=== PATIENT | female | born 1995 | race Caucasian/White ===

== ENCOUNTER 2020-11-12 15:18 | Emergency (ER) | payer OTHER ==
[2020-11-12 15:23] VITALS: TEMP 98
[2020-11-12] MEDS ORDERED: SODIUM CHLORIDE 0.9% 1,000 ML IV STA (15:40)
[2020-11-12] MEDS ORDERED: ONDANSETRON 4 MG/2 ML VIAL IVP STA (15:40)
[2020-11-12] MEDS ORDERED: KETOROLAC 15 MG/ML 1 ML VIAL IVP STA (15:40)
[2020-11-12] MEDS ORDERED: PANTOPRAZOLE 40 MG/10 ML VIAL IVP STA (15:40)
[2020-11-12 16:11] LABS: Basophils # (A) 0.1 k/uL (0-0.2); Basophils % (A) 1 %; Eosinophils % (A) 1 %; HCT 39.1 % (34.0-46.0); HGB 12.8 gm/dL (11.4-16.0); Lymphocytes # (A) 2.4 k/uL (1.0-4.8); Lymphocytes % (A) 28 %; MCH 24.8 pg (25.0-35.0); MCHC 32.7 g/dL (31.0-37.0); MCV 75.9 fL (80.0-100.0); Mean Platelet Volume 8.4; Monocytes # (A) 0.5 k/uL (0-1.0); Monocytes % (A) 6 %; Neutrophils # (A) 5.4 k/uL (1.3-7.7); Neutrophils % (A) 63 %; Platelet Count 245 k/uL (150-450); RBC 5.15 m/uL (3.80-5.40); RDW 13.8 % (11.5-15.5); WBC 8.6 k/uL (3.8-10.6)
[2020-11-12 16:21] VITALS: RESP 20
[2020-11-12 16:21] LABS: ALT 17 U/L (4-34); AST 21 U/L (14-36); African American GFR (CKD) >90 (>60 ml/min/1.73 sqM); Albumin 4.7 g/dL (3.5-5.0); Alkaline Phosphatase 65 U/L (38-126); Anion Gap 9 mmol/L; Blood Urea Nitrogen 7 mg/dL (7-17); Calcium 9.4 mg/dL (8.4-10.2); Carbon Dioxide 26 mmol/L (22-30); Chloride 101 mmol/L (98-107); Glucose 82 mg/dL (74-99); Lipase 35 U/L (23-300); Non-African American GFR(CKD) >90 (>60 ml/min/1.73 sqM); Potassium 3.9 mmol/L (3.5-5.1); Sodium 136 mmol/L (137-145); Total Bilirubin 0.4 mg/dL (0.2-1.3); Total Protein 7.5 g/dL (6.3-8.2)
[2020-11-12 16:27] LABS: Appearance,Urine Cloudy (Clear); Bilirubin,Urine Negative (Negative); Blood,Urine Negative (Negative); Color,Urine Yellow; Glucose,Urine (UA) Negative (Negative); Ketones,Urine Negative (Negative); Leukocyte Esterase,Urine Moderate (Negative); Mucus,Urine Few /hpf; Nitrite,Urine Negative (Negative); PH, Urine 5.5 (5.0-8.0); Protein,Urine Negative (Negative); RBC,Urine 2 /hpf (0-5); Squamous Epithelial Cell,Urine 26 /hpf (0-4); Urobilinogen,Urine <2.0 mg/dL (<2.0); WBC,Urine 12 /hpf (0-5)
--- NOTE | 2020-11-12 17:49 | US ---
EXAMINATION TYPE: US gallbladder DATE OF EXAM: 11/12/2020 COMPARISON: NONE CLINICAL HISTORY: + murpgy. Pain EXAM MEASUREMENTS: Liver Length: 16.1 cm Gallbladder Wall: .1 cm CBD: .3 cm Right Kidney: 9.6 x 3.5 x 4.5 cm Pancreas: wnl Liver: wnl Gallbladder: wnl Evidence for sonographic Street's sign: No CBD: wnl Right Kidney: wnl IMPRESSION: Negative exam. No gallstones or dilated ducts.
[2020-11-12 18:08] VITALS: BP 107/67; PULSE 86
--- NOTE | 2020-11-12 18:20 | ED ---
Abdominal Pain HPI - General Chief Complaint: Abdominal Pain Stated Complaint: abd pain Time Seen by Provider: 11/12/20 15:25 Source: patient Mode of arrival: ambulatory Limitations: no limitations - History of Present Illness Initial Comments: 25-year-old female presents to the emergency department with a chief complaint of abdominal pain. She has history of "gallbladder issues". States this pain has been ongoing for the past several days and is located in right upper quadrant region. States the pain is postprandial, usually associated with fatty foods. States the most recent time she had an acute exacerbation of the pain was several years ago. She reports one episode of nausea vomiting but denies any diarrhea. Denies any fevers or chills. Denies any vaginal urinary symptoms. - Related Data Home Medications Medication Instructions Recorded Confirmed Albuterol Sulfate [Ventolin HFA] 1 - 2 puff INHALATION RT-QID PRN 11/12/20 11/12/20 Allergies Allergy/AdvReac Type Severity Reaction Status Date / Time No Known Allergies Allergy Verified 11/12/20 17:00 Review of Systems ROS Statement: Those systems with pertinent positive or pertinent negative responses have been documented in the HPI. ROS Other: All systems not noted in ROS Statement are negative. Past Medical History Past Medical History: No Reported History History of Any Multi-Drug Resistant Organisms: None Reported Past Surgical History: No Surgical Hx Reported Past Psychological History: Anxiety, Depression Smoking Status: Vaper Past Alcohol Use History: None Reported Past Drug Use History: Marijuana General Exam Limitations: no limitations General appearance: alert, in no apparent distress Head exam: Present: atraumatic, normocephalic, normal inspection Eye exam: Present: normal appearance, PERRL, EOMI Pupils: Present: normal accommodation ENT exam: Present: normal exam, normal oropharynx, mucous membranes moist Neck exam: Present: normal inspection, full ROM. Absent: tenderness Respiratory exam: Present: normal lung sounds bilaterally. Absent: respiratory distress, wheezes, rales, rhonchi, stridor, chest wall tenderness, accessory muscle use Cardiovascular Exam: Present: regular rate, normal rhythm, normal heart sounds. Absent: systolic murmur GI/Abdominal exam: Present: soft, tenderness (Right upper quadrant tenderness). Absent: guarding, rebound, rigid Extremities exam: Present: normal inspection, full ROM, normal capillary refill. Absent: tenderness, pedal edema, joint swelling Back exam: Present: normal inspection, full ROM. Absent: tenderness, CVA tenderness (R), CVA tenderness (L) Neurological exam: Present: alert, oriented X3 Psychiatric exam: Present: normal affect, normal mood Skin exam: Present: warm, dry, intact, normal color Course Vital Signs 11/12/20 11/12/20 15:20 16:16 Temperature 98.0 F Pulse Rate 91 56 L Respiratory 16 20 Rate Blood Pressure 126/87 120/87 O2 Sat by Pulse 98 100 Oximetry Medical Decision Making - Medical Decision Making 25-year-old female presents to emergency Department with the chief complaint of abdominal pain. On physical examination, right upper quadrant abdominal tenderness. CBC CMP is unremarkable. UA shows mild elevation leukocyte esterase and white blood cells. She does not have any urinary symptoms so no treatment. Right upper quadrant ultrasound reveals no acute findings. She is experiencing biliary colic. Mother to follow up with a general surgeon. Advised her to stop eating fatty foods. Case discussed with physician. - Lab Data Result diagrams: 11/12/20 16:02 11/12/20 16:02 Lab Results 11/12/20 11/12/20 11/12/20 Range/Units 16:02 16:02 16:02 WBC 8.6 (3.8-10.6) k/uL RBC 5.15 (3.80-5.40) m/uL Hgb 12.8 (11.4-16.0) gm/dL Hct 39.1 (34.0-46.0) % MCV 75.9 L (80.0-100.0) fL MCH 24.8 L (25.0-35.0) pg MCHC 32.7 (31.0-37.0) g/dL RDW 13.8 (11.5-15.5) % Plt Count 245 (150-450) k/uL MPV 8.4 Neutrophils % 63 % Lymphocytes % 28 % Monocytes % 6 % Eosinophils % 1 % Basophils % 1 % Neutrophils # 5.4 (1.3-7.7) k/uL Lymphocytes # 2.4 (1.0-4.8) k/uL Monocytes # 0.5 (0-1.0) k/uL Eosinophils # 0.0 (0-0.7) k/uL Basophils # 0.1 (0-0.2) k/uL Sodium (137-145) mmol/L Potassium (3.5-5.1) mmol/L Chloride (98-107) mmol/L Carbon Dioxide (22-30) mmol/L Anion Gap mmol/L BUN (7-17) mg/dL Creatinine (0.52-1.04) mg/dL Est GFR (CKD-EPI)AfAm (>60 ml/min/1.73 sqM) Est GFR (CKD-EPI)NonAf (>60 ml/min/1.73 sqM) Glucose (74-99) mg/dL Calcium (8.4-10.2) mg/dL Total Bilirubin (0.2-1.3) mg/dL AST (14-36) U/L ALT (4-34) U/L Alkaline Phosphatase (38-126) U/L Total Protein (6.3-8.2) g/dL Albumin (3.5-5.0) g/dL Lipase (23-300) U/L Urine Color Yellow Urine Appearance Cloudy H (Clear) Urine pH 5.5 (5.0-8.0) Ur Specific [place] 1.020 (1.001-1.035) Urine Protein Negative (Negative) Urine Glucose (UA) Negative (Negative) Urine Ketones Negative (Negative) Urine Blood Negative (Negative) Urine Nitrite Negative (Negative) Urine Bilirubin Negative (Negative) Urine Urobilinogen <2.0 (<2.0) mg/dL Ur Leukocyte Esterase Moderate H (Negative) Urine RBC 2 (0-5) /hpf Urine WBC 12 H (0-5) /hpf Ur Squamous Epith Cells 26 H (0-4) /hpf Urine Mucus Few H (None) /hpf Urine HCG, Qual Not Detected (Not Detectd) 11/12/20 Range/Units 16:02 WBC (3.8-10.6) k/uL RBC (3.80-5.40) m/uL Hgb (11.4-16.0) gm/dL Hct (34.0-46.0) % MCV (80.0-100.0) fL MCH (25.0-35.0) pg MCHC (31.0-37.0) g/dL RDW (11.5-15.5) % Plt Count (150-450) k/uL MPV Neutrophils % % Lymphocytes % % Monocytes % % Eosinophils % % Basophils % % Neutrophils # (1.3-7.7) k/uL Lymphocytes # (1.0-4.8) k/uL Monocytes # (0-1.0) k/uL Eosinophils # (0-0.7) k/uL Basophils # (0-0.2) k/uL Sodium 136 L (137-145) mmol/L Potassium 3.9 (3.5-5.1) mmol/L Chloride 101 (98-107) mmol/L Carbon Dioxide 26 (22-30) mmol/L Anion Gap 9 mmol/L BUN 7 (7-17) mg/dL Creatinine 0.67 (0.52-1.04) mg/dL Est GFR (CKD-EPI)AfAm >90 (>60 ml/min/1.73 sqM) Est GFR (CKD-EPI)NonAf >90 (>60 ml/min/1.73 sqM) Glucose 82 (74-99) mg/dL Calcium 9.4 (8.4-10.2) mg/dL Total Bilirubin 0.4 (0.2-1.3) mg/dL AST 21 (14-36) U/L ALT 17 (4-34) U/L Alkaline Phosphatase 65 (38-126) U/L Total Protein 7.5 (6.3-8.2) g/dL Albumin 4.7 (3.5-5.0) g/dL Lipase 35 (23-300) U/L Urine Color Urine Appearance (Clear) Urine pH (5.0-8.0) Ur Specific [place] (1.001-1.035) Urine Protein (Negative) Urine Glucose (UA) (Negative) Urine Ketones (Negative) Urine Blood (Negative) Urine Nitrite (Negative) Urine Bilirubin (Negative) Urine Urobilinogen (<2.0) mg/dL Ur Leukocyte Esterase (Negative) Urine RBC (0-5) /hpf Urine WBC (0-5) /hpf Ur Squamous Epith Cells (0-4) /hpf Urine Mucus (None) /hpf Urine HCG, Qual (Not Detectd) Disposition Clinical Impression: Biliary colic Disposition: HOME SELF-CARE Condition: Stable Instructions (If sedation given, give patient instructions): Biliary Colic (ED) Additional Instructions: Please return to the Emergency Department if symptoms worsen or any other concerns. Follow with the general surgeon. Is patient prescribed a controlled substance at d/c from ED?: No Referrals: None,Stated [Primary Care Provider] - 1-2 days Sherly Liang MD [STAFF PHYSICIAN] - 1-2 days Time of Disposition: 18:25
== END 2020-11-12 18:45 | disposition home or self-care (01) ==
LOC: EC 15:18
DX: K80.50 Calculus of bile duct without cholangitis or cholecystitis without obstruction (principal); F41.9 Anxiety disorder, unspecified; F32.9 Major depressive disorder, single episode, unspecified; F17.290 Nicotine dependence, other tobacco product, uncomplicated; F12.90 Cannabis use, unspecified, uncomplicated
CPT/HCPCS: 99284; 96374; 96375 ×2; 96361; 36415; 80053; 83690; 85025; 81001; 81025; 87086; 76705; J2405; J1885; C9113

== ENCOUNTER 2020-11-27 13:12 | Emergency (ER) | payer OTHER ==
[2020-11-27 13:23] VITALS: BP 103/70; PULSE 91; RESP 18; TEMP 98.4
--- NOTE | 2020-11-27 14:23 | ED ---
ENT HPI - General Chief complaint: ENT Stated complaint: sorethroat Time Seen by Provider: 11/27/20 13:53 Source: patient Mode of arrival: ambulatory Limitations: no limitations - History of Present Illness Initial comments: 25-year-old female presenting to the emergency Department with a chief complaint of sore throat.. Patient reports she is a care for strep pharyngitis and has recurrent infections. Patient reports this feels that the beginning stages of a with a sore throat no cough chills at home. Denies any drooling or changes to her voice. She denies taking medication to alleviate the symptoms. She denies any otalgia but does report some swelling in her anterior lymph nodes. - Related Data Home Medications Medication Instructions Recorded Confirmed Albuterol Sulfate [Ventolin HFA] 1 - 2 puff INHALATION RT-QID PRN 11/12/20 11/12/20 Previous Rx's Medication Instructions Recorded Amoxicillin 875 mg PO Q12HR #20 tablet 11/27/20 Allergies Allergy/AdvReac Type Severity Reaction Status Date / Time No Known Allergies Allergy Verified 11/27/20 13:21 Review of Systems ROS Statement: Those systems with pertinent positive or pertinent negative responses have been documented in the HPI. ROS Other: All systems not noted in ROS Statement are negative. Past Medical History Past Medical History: No Reported History History of Any Multi-Drug Resistant Organisms: None Reported Past Surgical History: No Surgical Hx Reported Past Psychological History: Anxiety, Depression Smoking Status: Vaper Past Alcohol Use History: None Reported Past Drug Use History: Marijuana General Exam Limitations: no limitations General appearance: alert, in no apparent distress Head exam: Present: atraumatic, normocephalic, normal inspection Eye exam: Present: normal appearance, PERRL, EOMI Pupils: Present: normal accommodation ENT exam: Present: normal exam, normal oropharynx (Uvula midline.), mucous membranes moist, TM's normal bilaterally, normal external ear exam Neck exam: Present: normal inspection, full ROM, lymphadenopathy (Anterior cervical lymph nodes). Absent: tenderness, thyromegaly Respiratory exam: Present: normal lung sounds bilaterally. Absent: respiratory distress Cardiovascular Exam: Present: regular rate, normal rhythm, normal heart sounds. Absent: systolic murmur Extremities exam: Present: normal inspection, full ROM Back exam: Present: normal inspection, full ROM Neurological exam: Present: alert, oriented X3 Psychiatric exam: Present: normal affect, normal mood Skin exam: Present: warm, dry, intact, normal color Course Vital Signs 11/27/20 13:21 Temperature 98.4 F Pulse Rate 91 Respiratory 18 Rate Blood Pressure 103/70 O2 Sat by Pulse 97 Oximetry Medical Decision Making - Medical Decision Making 25-year-old female presents to the emergency room with a chief complaint of sore throat. Patient does fit [facility] criteria for treatment for strep pharyngitis. I will not perform a rapid strep testing. Coli test pending. I will prescribe amoxicillin for patient. She is otherwise well-appearing. Return parameters discussed the patient was understanding and agreeable.. PCP follow advised. Disposition Clinical Impression: Pharyngitis Disposition: HOME SELF-CARE Condition: Stable Instructions (If sedation given, give patient instructions): Pharyngitis (ED) Additional Instructions: Please return to the Emergency Department if symptoms worsen or any other concerns. Prescriptions: Amoxicillin 875 mg PO Q12HR #20 tablet Is patient prescribed a controlled substance at d/c from ED?: No Referrals: None,Stated [Primary Care Provider] - 1-2 days Time of Disposition: 14:22
== END 2020-11-27 15:05 | disposition home or self-care (01) ==
LOC: EC 13:12
DX: J02.9 Acute pharyngitis, unspecified (principal); F41.9 Anxiety disorder, unspecified; F32.9 Major depressive disorder, single episode, unspecified; F17.290 Nicotine dependence, other tobacco product, uncomplicated; F12.90 Cannabis use, unspecified, uncomplicated; Z20.822 Contact with and (suspected) exposure to COVID-19
CPT/HCPCS: 87635; 99283

== ENCOUNTER 2023-07-22 10:27 | Emergency (ER) | payer OTHER ==
--- NOTE | 2023-07-22 10:39 | ED ---
Abdominal Pain HPI - General Chief Complaint: Abdominal Pain Stated Complaint: Abd/Back pain Time Seen by Provider: 07/22/23 10:35 Source: patient, RN notes reviewed Mode of arrival: ambulatory Limitations: no limitations - History of Present Illness Initial Comments: 28-year-old female presents emergency department chief complaint of left flank pain. Patient was sent in by urgent care for hematuria concerning for kidney stone. Patient states pain started earlier she has associated nausea denies any chance of she had negative test. Patient states she has never had any like this in the past. Nothing makes pain feel better or worse. - Related Data Home Medications Medication Instructions Recorded Confirmed Albuterol Sulfate [Ventolin HFA] 1 - 2 puff INHALATION RT-QID PRN 11/12/20 05/22/21 Previous Rx's Medication Instructions Recorded Cephalexin [Keflex] 500 mg PO Q6HR 5 Days #20 cap 05/22/21 Ketorolac [Toradol] 10 mg PO Q8HR #15 tab 07/22/23 Ondansetron Odt [Zofran Odt] 4 mg PO Q8HR PRN #10 tab 07/22/23 Allergies Allergy/AdvReac Type Severity Reaction Status Date / Time No Known Allergies Allergy Verified 07/22/23 10:33 Review of Systems ROS Statement: Those systems with pertinent positive or pertinent negative responses have been documented in the HPI. ROS Other: All systems not noted in ROS Statement are negative. Past Medical History Past Medical History: Asthma History of Any Multi-Drug Resistant Organisms: None Reported Past Surgical History: No Surgical Hx Reported Past Psychological History: Anxiety, Depression Smoking Status: Vaper Past Alcohol Use History: None Reported Past Drug Use History: Marijuana General Exam - General Exam Comments Initial Comments: Visual Physical Exam Vital signs reviewed General: Well-appearing, nontoxic, no acute distress. Head: Normocephalic, atraumatic Eyes: PERRLA, EOMI ENT: Airway patent Chest: Nonlabored breathing Skin: No visual rash, normal skin tone Neuro: Alert and oriented 3 Musculoskeletal: No gross abnormalities Limitations: no limitations Course Vital Signs 07/22/23 07/22/23 10:31 13:50 Temperature 97.4 F L 97.9 F Pulse Rate 82 55 L Respiratory 22 16 Rate Blood Pressure 132/85 116/76 O2 Sat by Pulse 100 100 Oximetry Medical Decision Making - Medical Decision Making I completed the quick note portion of this chart signed Gerhard Reeevs PA-C Was pt. sent in by a medical professional or institution (DWAYNE German, [employer], urgent care, hospital, or long-term...) When possible be specific @ -Urgent care Did you speak to anyone other than the patient for history (EMS, parent, family, police, friend...)? What history was obtained from this source @ -No Did you review nursing and triage notes (agree or disagree)? Why? @ -I reviewed and agree with nursing and triage notes Were old charts reviewed (outside hosp., previous admission, EMS record, old EKG, old radiological studies, urgent care reports/EKG's, long-term records)? Report findings @ -No old charts were reviewed Differential Diagnosis (chest pain, altered mental status, abdominal pain women, abdominal pain men, vaginal bleeding, weakness, fever, dyspnea, syncope, headache, dizziness, GI bleed, back pain, seizure, CVA, palpatations, mental health, musculoskeletal)? @ -[Differential Abdominal Pain Women: Appendicitis, Cholecystitis, diverticulosis, ischemic bowel, pancreatitis, hepatitis, UTI, gastroenteritis, AAA, incarcerated hernia, bowel obstruction, constipation, inflammatory bowel, hepatitis, peptic ulcer disease, splenic infarction, perforated viscus, vulvitis, ovarian torsion, PID, kidney stone, placenta abruption, this is not meant to be an all-inclusive list EKG interpreted by me (3pts min.). @ -None X-rays interpreted by me (1pt min.). @ -None done CT interpreted by me (1pt min.). @CT abdomen pelvis showing no acute intra-abdominal process no evidence of kidney stone U/S interpreted by me (1pt. min.). @ -None done What testing was considered but not performed or refused? (CT, X-rays, U/S, labs)? Why? @ -None What meds were considered but not given or refused? Why? @ -None Did you discuss the management of the patient with other professionals (professionals i.e. DWAYNE German, DRAWER MAKER, lab, RT, psych nurse, social welfare research worker, forcer maker, teacher, weapons officer, housing case manager)? Give summary @ -No Was smoking cessation discussed for >3mins.? @ -No Was critical care preformed (if so, how long)? @ -No Were there social determinants of health that impacted care today? How? (Ptarick elessness, low income, unemployed, alcoholism, drug addiction, transportation, low edu. Level, literacy, decrease access to med. care, nursing home, rehab)? @ -No Was there de-escalation of care discussed even if they declined (Discuss DNR or withdrawal of care, Hospice)? DNR status @ -No What co-morbidities impacted this encounter? (DM, HTN, Smoking, COPD, CAD, Cancer, CVA, ARF, Chemo, Hep., AIDS, mental health diagnosis, sleep apnea, morbid obesity)? @ -None Was patient admitted / discharged? Hospital course, mention meds given and route, prescriptions, significant lab abnormalities, going to OR and other pertinent info. @ -Charge patient presented for flank pain, hematuria there is no signs of in fection CT was negative patient may have recently passed a stone patient's pain is improved will be discharged in stable condition. Undiagnosed new problem with uncertain prognosis? @ -No Drug Therapy requiring intensive monitoring for toxicity (Heparin, Nitro, Insulin, Cardizem)? @ -No Were any procedures done? @ -No Diagnosis/symptom? @ -Flank pain, hematuria Acute, or Chronic, or Acute on Chronic? @ -Acute Uncomplicated (without systemic symptoms) or Complicated (systemic symptoms)? @ -Uncomplicated Side effects of treatment? @ -No Exacerbation, Progression, or Severe Exacerbation? @ -No Poses a threat to life or bodily function? How? (Chest pain, [place], [place], pneumonia, PE, COPD, DKA, ARF, appy, cholecystitis, CVA, Diverticulitis, Homicidal, Suicidal, threat to staff... and all critical care pts) @ -No - Lab Data Result diagrams: 07/22/23 12:20 07/22/23 12:20 Lab Results 07/22/23 07/22/23 07/22/23 Range/Units 11:03 12:20 12:20 WBC 6.4 (3.8-10.6) k/uL RBC 5.34 (3.80-5.40) m/uL Hgb 13.0 (11.4-16.0) gm/dL Hct 40.4 (34.0-46.0) % MCV 75.7 L (80.0-100.0) fL MCH 24.3 L (25.0-35.0) pg MCHC 32.1 (31.0-37.0) g/dL RDW 14.3 (11.5-15.5) % Plt Count 253 (150-450) k/uL MPV 8.6 Neutrophils % 55 % Lymphocytes % 36 % Monocytes % 6 % Eosinophils % 1 % Basophils % 1 % Neutrophils # 3.5 (1.3-7.7) k/uL Lymphocytes # 2.3 (1.0-4.8) k/uL Monocytes # 0.4 (0-1.0) k/uL Eosinophils # 0.1 (0-0.7) k/uL Basophils # 0.0 (0-0.2) k/uL Microcytosis Slight Sodium 139 (137-145) mmol/L Potassium 3.9 (3.5-5.1) mmol/L Chloride 105 (98-107) mmol/L Carbon Dioxide 25 (22-30) mmol/L Anion Gap 9 mmol/L BUN 8 (7-17) mg/dL Creatinine 0.76 (0.52-1.04) mg/dL Est GFR (CKD-EPI)AfAm >90 (>60 ml/min/1.73 sqM) Est GFR (CKD-EPI)NonAf >90 (>60 ml/min/1.73 sqM) Glucose 86 (74-99) mg/dL Calcium 9.5 (8.4-10.2) mg/dL Total Bilirubin 0.5 (0.2-1.3) mg/dL AST 23 (14-36) U/L ALT 20 (4-34) U/L Alkaline Phosphatase 66 (38-126) U/L Total Protein 8.1 (6.3-8.2) g/dL Albumin 4.9 (3.5-5.0) g/dL Lipase 44 (23-300) U/L Urine Color Light Yellow Urine Appearance Clear (Clear) Urine pH 6.0 (5.0-8.0) Ur Specific [place] 1.024 (1.001-1.035) Urine Protein Negative (Negative) Urine Glucose (UA) Negative (Negative) Urine Ketones Negative (Negative) Urine Blood Small H (Negative) Urine Nitrite Negative (Negative) Urine Bilirubin Negative (Negative) Urine Urobilinogen <2.0 (<2.0) mg/dL Ur Leukocyte Esterase Negative (Negative) Urine RBC 33 H (0-5) /hpf Urine WBC 4 (0-5) /hpf Ur Squamous Epith Cells 3 (0-4) /hpf Urine Mucus Occasional H (None) /hpf Disposition Clinical Impression: Flank pain, Hematuria Disposition: HOME SELF-CARE Condition: Stable Instructions (If sedation given, give patient instructions): Kidney Stones (ED) Additional Instructions: Please return to the Emergency Department if symptoms worsen or any other concerns. Prescriptions: Ketorolac [Toradol] 10 mg PO Q8HR #15 tab Ondansetron Odt [Zofran Odt] 4 mg PO Q8HR PRN #10 tab PRN Reason: Nausea Is patient prescribed a controlled substance at d/c from ED?: No Referrals: None,Stated [Primary Care Provider] - 1-2 days Time of Disposition: 13:33
[2023-07-22 12:08] LABS: Appearance,Urine Clear (Clear); Bilirubin,Urine Negative (Negative); Blood,Urine Small (Negative); Color,Urine Light Yellow; Glucose,Urine (UA) Negative (Negative); Ketones,Urine Negative (Negative); Leukocyte Esterase,Urine Negative (Negative); Mucus,Urine Occasional /hpf; Nitrite,Urine Negative (Negative); Protein,Urine Negative (Negative); RBC,Urine 33 /hpf (0-5); Specific Gravity,Urine 1.024 (1.001-1.035); Squamous Epithelial Cell,Urine 3 /hpf (0-4); Urobilinogen,Urine <2.0 mg/dL (<2.0); WBC,Urine 4 /hpf (0-5)
[2023-07-22] MEDS: ONDANSETRON 4 MG/2 ML VIAL IVP STA (12:25)
[2023-07-22] MEDS: SODIUM CHLORIDE 0.9% 1,000 ML IV STA (12:26)
[2023-07-22] MEDS: KETOROLAC 15 MG/ML 1 ML VIAL IVP STA (12:26)
[2023-07-22 12:38] LABS: Basophils % (A) 1 %; Eosinophils # (A) 0.1 k/uL (0-0.7); Eosinophils % (A) 1 %; HCT 40.4 % (34.0-46.0); Lymphocytes # (A) 2.3 k/uL (1.0-4.8); Lymphocytes % (A) 36 %; MCH 24.3 pg (25.0-35.0); MCHC 32.1 g/dL (31.0-37.0); MCV 75.7 fL (80.0-100.0); Mean Platelet Volume 8.6; Microcytosis Slight; Monocytes # (A) 0.4 k/uL (0-1.0); Monocytes % (A) 6 %; Neutrophils # (A) 3.5 k/uL (1.3-7.7); Neutrophils % (A) 55 %; Platelet Count 253 k/uL (150-450); RBC 5.34 m/uL (3.80-5.40); RDW 14.3 % (11.5-15.5); WBC 6.4 k/uL (3.8-10.6)
[2023-07-22 12:50] LABS: ALT 20 U/L (4-34); AST 23 U/L (14-36); African American GFR (CKD) >90 (>60 ml/min/1.73 sqM); Albumin 4.9 g/dL (3.5-5.0); Alkaline Phosphatase 66 U/L (38-126); Anion Gap 9 mmol/L; Blood Urea Nitrogen 8 mg/dL (7-17); Calcium 9.5 mg/dL (8.4-10.2); Carbon Dioxide 25 mmol/L (22-30); Chloride 105 mmol/L (98-107); Glucose 86 mg/dL (74-99); Lipase 44 U/L (23-300); Non-African American GFR(CKD) >90 (>60 ml/min/1.73 sqM); Potassium 3.9 mmol/L (3.5-5.1); Sodium 139 mmol/L (137-145); Total Bilirubin 0.5 mg/dL (0.2-1.3); Total Protein 8.1 g/dL (6.3-8.2)
--- NOTE | 2023-07-22 12:53 | CT ---
EXAMINATION TYPE: CT abdomen pelvis wo con DATE OF EXAM: 07/22/2023 COMPARISON: None INDICATION: Left Lower Quadrant pain with Left flank pain DLP: 351.6 mGycm, Automated exposure control for dose reduction was used. CONTRAST: 0 mL of Isovue 300. Study performed without Oral Contrast TECHNIQUE: Axial images were obtained from above the diaphragm to the pubic rami in the axial plane a t 5 mm thick sections. Reconstructed images are reviewed on the computer in the coronal plane. FINDINGS: Limited CT sections are obtained the lung bases. The lung bases are clear. CT ABDOMEN: Liver: Normal Spleen: Normal Pancreas: Normal Adrenal glands: The adrenal glands are normal. Gallbladder: Normal Kidneys: No masses are evident. No hydronephrosis is present. No cysts are present. No renal stone s are evident. Aorta: Normal Inferior vena cava: Normal. CT PELVIS: Loops of bowel within the abdomen and pelvis are normal. The study is without oral contrast limit ing bowel evaluation. No suspicious acute diverticulitis of the sigmoid colon is evident. Appendix: Cecum appears to be near the midline of the pelvis. The appendix is not clearly identified. No suspicious dilated tubular structure or inflammatory changes are evident. Clinical management is recommended for any suspected appendicitis. Urinary bladder: Normal. Genitourinary structures: Uterus is unremarkable. Couple of cysts are present on the ovaries. The lar marianne on the right measures 1.4 cm. Osseous structures: No suspicious lytic or sclerotic lesions. IMPRESSION: 1. No suspicious abnormality account for left lower quadrant pain. 2. Small cyst right ovary
[2023-07-22 13:56] VITALS: BP 116/76; PULSE 55; RESP 16; TEMP 97.9
== END 2023-07-22 13:51 | disposition home or self-care (01) ==
LOC: EC 10:27
DX: N83.201 Unspecified ovarian cyst, right side (principal); F17.290 Nicotine dependence, other tobacco product, uncomplicated
CPT/HCPCS: 36415; 80053; 83690; 85025; 81001; 74176; 99284; 96374; 96375; 96361; J2405; J1885

== ENCOUNTER 2023-07-29 09:26 | Emergency (ER) | payer OTHER ==
--- NOTE | 2023-07-29 10:40 | ED ---
Abdominal Pain HPI - General Chief Complaint: Abdominal Pain Stated Complaint: abd pain Time Seen by Provider: 07/29/23 09:45 Source: patient, RN notes reviewed Mode of arrival: ambulatory Limitations: no limitations - History of Present Illness Initial Comments: This is a 28-year-old female with complaint of right sided abdominal pain that started this morning around 5-6 AM. Patient states that the pain started in her right lower quadrant and has migrated into the right flank with pain into her back as well. She endorses diarrhea and fevers this morning. States that she noticed urine is slightly discolored and may have blood in it. She endorses suprapubic tenderness. Denies previous abdominal surgeries. Denies nausea, vomiting, vaginal bleeding. Patient has a history of ovarian cysts. - Related Data Home Medications Medication Instructions Recorded Confirmed Albuterol Sulfate [Ventolin HFA] 1 - 2 puff INHALATION RT-QID PRN 11/12/20 05/22/21 Previous Rx's Medication Instructions Recorded Cephalexin [Keflex] 500 mg PO Q6HR 5 Days #20 cap 05/22/21 Ketorolac [Toradol] 10 mg PO Q8HR #15 tab 07/22/23 Ondansetron Odt [Zofran Odt] 4 mg PO Q8HR PRN #10 tab 07/22/23 Allergies Allergy/AdvReac Type Severity Reaction Status Date / Time No Known Allergies Allergy Verified 07/22/23 10:33 Review of Systems ROS Statement: Those systems with pertinent positive or pertinent negative responses have been documented in the HPI. ROS Other: All systems not noted in ROS Statement are negative. Past Medical History Past Medical History: Asthma Additional Past Medical History / Comment(s): polycystic ovaries, herpes History of Any Multi-Drug Resistant Organisms: None Reported Past Surgical History: No Surgical Hx Reported Past Psychological History: Anxiety, Depression Smoking Status: Vaper Past Alcohol Use History: None Reported Past Drug Use History: Marijuana General Exam - General Exam Comments Initial Comments: Visual Physical Exam Vital signs reviewed General: Well-appearing, nontoxic, no acute distress. Head: Normocephalic, atraumatic Eyes: PERRLA, EOMI ENT: Airway patent Chest: Nonlabored breathing Skin: No visual rash, normal skin tone Neuro: Alert and oriented 3 Musculoskeletal: No gross abnormalities Limitations: no limitations General appearance: alert, in no apparent distress Head exam: Present: atraumatic, normocephalic, normal inspection Eye exam: Present: normal appearance, PERRL, EOMI. Absent: scleral icterus, conjunctival injection, periorbital swelling ENT exam: Present: normal exam, mucous membranes moist Neck exam: Present: normal inspection. Absent: tenderness, meningismus, lymphadenopathy Respiratory exam: Present: normal lung sounds bilaterally. Absent: respiratory distress, wheezes, rales, rhonchi, stridor Cardiovascular Exam: Present: regular rate, normal rhythm, normal heart sounds. Absent: systolic murmur, diastolic murmur, rubs, gallop, clicks GI/Abdominal exam: Present: soft, tenderness (RLQ radiating into the flank), normal bowel sounds. Absent: distended, guarding, rebound, rigid Extremities exam: Present: normal inspection, full ROM, normal capillary refill. Absent: tenderness, pedal edema, joint swelling, calf tenderness Back exam: Present: normal inspection, full ROM, CVA tenderness (R) Neurological exam: Present: alert, oriented X3, CN II-XII intact Psychiatric exam: Present: normal affect, normal mood Skin exam: Present: warm, dry, intact, normal color. Absent: rash Course Vital Signs 07/29/23 07/29/23 09:56 16:13 Temperature 98.5 F 98 F Pulse Rate 96 78 Respiratory 16 18 Rate Blood Pressure 133/92 121/78 O2 Sat by Pulse 100 100 Oximetry Medical Decision Making - Medical Decision Making Was pt. sent in by a medical professional or institution (, PA, TRENCHER DRIVER, urgent care, hospital, or jail...) When possible be specific @ -No Did you speak to anyone other than the patient for history (EMS, parent, family, police, friend...)? What history was obtained from this source @ -No Did you review nursing and triage notes (agree or disagree)? Why? @ -I reviewed and agree with nursing and triage notes Were old charts reviewed (outside hosp., previous admission, EMS record, old EKG, old radiological studies, urgent care reports/EKG's, jail records)? Report findings @ -No old charts were reviewed Differential Diagnosis (chest pain, altered mental status, abdominal pain women, abdominal pain men, vaginal bleeding, weakness, fever, dyspnea, syncope, headache, dizziness, GI bleed, back pain, seizure, CVA, palpatations, mental health, musculoskeletal)? @ -Differential Abdominal Pain Women: Appendicitis, Cholecystitis, diverticulosis, ischemic bowel, pancreatitis, hepatitis, UTI, gastroenteritis, AAA, incarcerated hernia, bowel obstruction, constipation, inflammatory bowel, hepatitis, peptic ulcer disease, splenic infarction, perforated viscus, vulvitis, ovarian torsion, PID, kidney stone, placenta abruption, this is not meant to be an all-inclusive list EKG interpreted by me (3pts min.). @ -None X-rays interpreted by me (1pt min.). @ -None done CT interpreted by me (1pt min.). @ -None done U/S interpreted by me (1pt. min.). @ -Ultrasound of the renals of bladder reveals no nephrolithiasis or masses, fullness of the renal pelvis bilaterally. Renal ultrasound reveals a irregular hyperechoic rim at the right ovary with correlation of a ruptured cyst. No evidence for torsion with multiple left- sided ovarian follicles noted. What testing was considered but not performed or refused? (CT, X-rays, U/S, labs)? Why? @ -None What meds were considered but not given or refused? Why? @ -None Did you discuss the management of the patient with other professionals (walt hernandez i.e. , PA, TRENCHER DRIVER, lab, RT, psych nurse, social work lecturer, soldering inspector, teacher, training and development officer, family independence case manager)? Give summary @ -No Was smoking cessation discussed for >3mins.? @ -No Was critical care preformed (if so, how long)? @ -No Were there social determinants of health that impacted care today? How? (Homelessness, low income, unemployed, alcoholism, drug addiction, transportation, low edu. Level, literacy, decrease access to med. care, [facility], rehab)? @ -No Was there de-escalation of care discussed even if they declined (Discuss DNR or withdrawal of care, Hospice)? DNR status @ -No What co-morbidities impacted this encounter? (DM, HTN, Smoking, COPD, CAD, Cancer, CVA, ARF, Chemo, Hep., AIDS, mental health diagnosis, sleep apnea, morbid obesity)? @ -None Was patient admitted / discharged? Hospital course, mention meds given and route, prescriptions, significant lab abnormalities, going to OR and other pertinent info. @ -Discharge. 28-year-old female with complaint of right-sided abdominal pain. On examination patient noted to have right-sided pain that is tender to palpation and radiates into the right back. There is no guarding or rigidity noted. CBC and CMP unremarkable. Urinalysis no acute signs of infection, hCG negative. Ultrasound findings consistent with rupture of a right ovarian cyst that is consistent with the clinical presentation. Patient to continue with symptomatic treatment at home cycling Tylenol and Motrin as needed. Recommend follow-up with pastrycook's assistant this week for further evaluation. Discussed with Dr. Madrigal Undiagnosed new problem with uncertain prognosis? @ -No Drug Therapy requiring intensive monitoring for toxicity (Heparin, Nitro, Insulin, Cardizem)? @ -No Were any procedures done? @ -No Diagnosis/symptom? @ -ruptured ovarian cyst Acute, or Chronic, or Acute on Chronic? @ -acute Uncomplicated (without systemic symptoms) or Complicated (systemic symptoms)? @ -uncomplicated Side effects of treatment? @ -No Exacerbation, Progression, or Severe Exacerbation? @ -No Poses a threat to life or bodily function? How? (Chest pain, [place], [place], pneumonia, PE, COPD, DKA, ARF, appy, cholecystitis, CVA, Diverticulitis, Homicidal, Suicidal, threat to staff... and all critical care pts) @ -No - Lab Data Result diagrams: 07/29/23 10:02 07/29/23 10:02 Lab Results 07/29/23 07/29/23 07/29/23 Range/Units 10:02 10:02 10:15 WBC 7.7 (3.8-10.6) k/uL RBC 5.42 H (3.80-5.40) m/uL Hgb 13.7 (11.4-16.0) gm/dL Hct 40.9 (34.0-46.0) % MCV 75.4 L (80.0-100.0) fL MCH 25.3 (25.0-35.0) pg MCHC 33.6 (31.0-37.0) g/dL RDW 14.5 (11.5-15.5) % Plt Count 210 (150-450) k/uL MPV 9.3 Neutrophils % 61 % Lymphocytes % 30 % Monocytes % 6 % Eosinophils % 1 % Basophils % 1 % Neutrophils # 4.7 (1.3-7.7) k/uL Lymphocytes # 2.3 (1.0-4.8) k/uL Monocytes # 0.5 (0-1.0) k/uL Eosinophils # 0.1 (0-0.7) k/uL Basophils # 0.0 (0-0.2) k/uL Microcytosis Slight Sodium 139 (137-145) mmol/L Potassium 4.5 (3.5-5.1) mmol/L Chloride 106 (98-107) mmol/L Carbon Dioxide 26 (22-30) mmol/L Anion Gap 7 mmol/L BUN 9 (7-17) mg/dL Creatinine 0.75 (0.52-1.04) mg/dL Est GFR (CKD-EPI)AfAm >90 (>60 ml/min/1.73 sqM) Est GFR (CKD-EPI)NonAf >90 (>60 ml/min/1.73 sqM) Glucose 92 (74-99) mg/dL Calcium 9.6 (8.4-10.2) mg/dL Total Bilirubin 0.6 (0.2-1.3) mg/dL AST 21 (14-36) U/L ALT 19 (4-34) U/L Alkaline Phosphatase 72 (38-126) U/L Total Protein 7.9 (6.3-8.2) g/dL Albumin 4.7 (3.5-5.0) g/dL Urine Color Colorless Urine Appearance Clear (Clear) Urine pH 7.0 (5.0-8.0) Ur Specific [place] 1.012 (1.001-1.035) Urine Protein Negative (Negative) Urine Glucose (UA) Negative (Negative) Urine Ketones Negative (Negative) Urine Blood Negative (Negative) Urine Nitrite Negative (Negative) Urine Bilirubin Negative (Negative) Urine Urobilinogen <2.0 (<2.0) mg/dL Ur Leukocyte Esterase Negative (Negative) Urine HCG, Qual (Not Detectd) 07/29/23 Range/Units 10:15 WBC (3.8-10.6) k/uL RBC (3.80-5.40) m/uL Hgb (11.4-16.0) gm/dL Hct (34.0-46.0) % MCV (80.0-100.0) fL MCH (25.0-35.0) pg MCHC (31.0-37.0) g/dL RDW (11.5-15.5) % Plt Count (150-450) k/uL MPV Neutrophils % % Lymphocytes % % Monocytes % % Eosinophils % % Basophils % % Neutrophils # (1.3-7.7) k/uL Lymphocytes # (1.0-4.8) k/uL Monocytes # (0-1.0) k/uL Eosinophils # (0-0.7) k/uL Basophils # (0-0.2) k/uL Microcytosis Sodium (137-145) mmol/L Potassium (3.5-5.1) mmol/L Chloride (98-107) mmol/L Carbon Dioxide (22-30) mmol/L Anion Gap mmol/L BUN (7-17) mg/dL Creatinine (0.52-1.04) mg/dL Est GFR (CKD-EPI)AfAm (>60 ml/min/1.73 sqM) Est GFR (CKD-EPI)NonAf (>60 ml/min/1.73 sqM) Glucose (74-99) mg/dL Calcium (8.4-10.2) mg/dL Total Bilirubin (0.2-1.3) mg/dL AST (14-36) U/L ALT (4-34) U/L Alkaline Phosphatase (38-126) U/L Total Protein (6.3-8.2) g/dL Albumin (3.5-5.0) g/dL Urine Color Urine Appearance (Clear) Urine pH (5.0-8.0) Ur Specific [place] (1.001-1.035) Urine Protein (Negative) Urine Glucose (UA) (Negative) Urine Ketones (Negative) Urine Blood (Negative) Urine Nitrite (Negative) Urine Bilirubin (Negative) Urine Urobilinogen (<2.0) mg/dL Ur Leukocyte Esterase (Negative) Urine HCG, Qual Not Detected (Not Detectd) Disposition Clinical Impression: Ruptured ovarian cyst, Abdominal pain Narrative: \Please return to the Emergency Department if symptoms worsen or any other concerns. Recommend patient follows up with pastrycook's assistant this week for further evaluation. Continue to cycle Tylenol Motrin at home for symptomatic relief. Disposition: HOME SELF-CARE Condition: Good Instructions (If sedation given, give patient instructions): Ruptured Ovarian Cyst (ED) Is patient prescribed a controlled substance at d/c from ED?: No Referrals: None,Stated [Primary Care Provider] - 1-2 days Time of Disposition: 15:21
[2023-07-29 10:45] LABS: Appearance,Urine Clear (Clear); Bilirubin,Urine Negative (Negative); Blood,Urine Negative (Negative); Color,Urine Colorless; Glucose,Urine (UA) Negative (Negative); Ketones,Urine Negative (Negative); Leukocyte Esterase,Urine Negative (Negative); Nitrite,Urine Negative (Negative); Protein,Urine Negative (Negative); Specific Gravity,Urine 1.012 (1.001-1.035); Urobilinogen,Urine <2.0 mg/dL (<2.0)
[2023-07-29 10:50] LABS: ALT 19 U/L (4-34); AST 21 U/L (14-36); African American GFR (CKD) >90 (>60 ml/min/1.73 sqM); Albumin 4.7 g/dL (3.5-5.0); Alkaline Phosphatase 72 U/L (38-126); Anion Gap 7 mmol/L; Blood Urea Nitrogen 9 mg/dL (7-17); Calcium 9.6 mg/dL (8.4-10.2); Carbon Dioxide 26 mmol/L (22-30); Chloride 106 mmol/L (98-107); Glucose 92 mg/dL (74-99); Non-African American GFR(CKD) >90 (>60 ml/min/1.73 sqM); Potassium 4.5 mmol/L (3.5-5.1); Sodium 139 mmol/L (137-145); Total Bilirubin 0.6 mg/dL (0.2-1.3); Total Protein 7.9 g/dL (6.3-8.2)
[2023-07-29 11:04] LABS: Basophils % (A) 1 %; Eosinophils # (A) 0.1 k/uL (0-0.7); Eosinophils % (A) 1 %; HCT 40.9 % (34.0-46.0); HGB 13.7 gm/dL (11.4-16.0); Lymphocytes # (A) 2.3 k/uL (1.0-4.8); Lymphocytes % (A) 30 %; MCH 25.3 pg (25.0-35.0); MCHC 33.6 g/dL (31.0-37.0); MCV 75.4 fL (80.0-100.0); Mean Platelet Volume 9.3; Microcytosis Slight; Monocytes # (A) 0.5 k/uL (0-1.0); Monocytes % (A) 6 %; Neutrophils # (A) 4.7 k/uL (1.3-7.7); Neutrophils % (A) 61 %; Platelet Count 210 k/uL (150-450); RBC 5.42 m/uL (3.80-5.40); RDW 14.5 % (11.5-15.5); WBC 7.7 k/uL (3.8-10.6)
--- NOTE | 2023-07-29 11:23 | US ---
EXAMINATION TYPE: US renals and bladder DATE OF EXAM: 07/29/2023 COMPARISON: CT 2023 CLINICAL INDICATION: Female, 28 years old with history of RLQ and flank pain; Pelvic and right flank pain EXAM MEASUREMENTS: Right Kidney: 9.8 x 3.4 x 4.4 cm Left Kidney: 10.0 x 4.3 x 3.9 cm Right Kidney: fullness of renal pelvis Left Kidney: fullness of renal pelvis Bladder: wnl Bilateral Jets seen: no No nephrolithiasis is seen. No masses are identified. The urinary bladder is anechoic. Bilateral u reteral jets are seen. IMPRESSION: Fullness of the renal pelves bilaterally.
--- NOTE | 2023-07-29 11:37 | US ---
EXAMINATION TYPE: US transvaginal DATE OF EXAM: 07/29/2023 COMPARISON: CT 2023 CLINICAL INDICATION: Female, 28 years old with history of RLQ and flank pain; Pelvic and right flank pain TECHNIQUE: Transvaginal ER exam Date of LMP: 3 weeks ago EXAM MEASUREMENTS: Uterus: 7.1 x 3.9 x 4.6 cm Endometrial Stripe: 1.3 cm Right Ovary: 2.4 x 2.0 x 2.8 cm Left Ovary: 3.7 x 1.9 x 1.6 cm 1. Uterus: retroverted 2. Endometrium: wnl 3. Right Ovary: 1.6 x 1.5 x 2.2cm irregular complex area with hyperechoic rim - ? ruptured cyst 4. Left Ovary: multiple follicles Spectral, color and waveform doppler imaging shows good arterial and venous flow within the ovaries ; there is no evidence for ovarian torsion. 5. Bilateral Adnexa: wnl 6. Posterior cul-de-sac: free fluid IMPRESSION: 1. Possible right-sided ovarian ruptured cyst. No evidence for torsion. Multiple left-sided ovarian f ollicle seen.
[2023-07-29] MEDS: ACETAMINOPHEN TAB 500 MG TAB PO STA (15:30)
[2023-07-29] MEDS: KETOROLAC 15 MG/ML 1 ML VIAL IVP STA (15:31)
[2023-07-29 16:27] VITALS: BP 121/78; PULSE 78; RESP 18; TEMP 98
== END 2023-07-29 16:16 | disposition home or self-care (01) ==
LOC: EC 09:26
DX: N83.201 Unspecified ovarian cyst, right side (principal); F17.210 Nicotine dependence, cigarettes, uncomplicated
CPT/HCPCS: 36415; 80053; 85025; 81003; 81025; 93975; 76830; 76770; 99284; 96374; J1885

== ENCOUNTER 2024-09-20 09:52 | Emergency (ER) | payer OTHER ==
[2024-09-20 09:57] VITALS: TEMP 98.5
--- NOTE | 2024-09-20 10:12 | ED ---
Lower Extremity Injury HPI - General Chief Complaint: Extremity Injury, Lower Stated Complaint: Fall, left ankle injury Time Seen by Provider: 09/20/24 10:05 Source: patient, RN notes reviewed Mode of arrival: wheelchair Limitations: no limitations - History of Present Illness Initial Comments: This is a 35-week , 29-year-old female presenting with fianc for her left ankle injury occurring earlier today. Patient states she was [place] a [place] a [place] when she suffered a trip, being caught by her fianc before striking the ground significantly, injuring her left ankle at the time. Patient denies striking head, loss of consciousness, headache, neck pain or lying on her abdomen. Patient denies abdominal pain or vaginal bleeding. Patient denies any significant complication during so far. MD Complaint: ankle injury Onset/Timin -: days(s) Injury: Ankle: Right - Related Data Home Medications Medication Instructions Recorded Confirmed Albuterol Sulfate [Ventolin HFA] 1 - 2 puff INHALATION RT-QID PRN 11/12/20 05/22/21 Previous Rx's Medication Instructions Recorded Cephalexin [Keflex] 500 mg PO Q6HR 5 Days #20 cap 05/22/21 Ketorolac [Toradol] 10 mg PO Q8HR #15 tab 07/22/23 Ondansetron Odt [Zofran Odt] 4 mg PO Q8HR PRN #10 tab 07/22/23 Allergies Allergy/AdvReac Type Severity Reaction Status Date / Time No Known Allergies Allergy Verified 09/20/24 09:57 Review of Systems ROS Statement: Those systems with pertinent positive or pertinent negative responses have been documented in the HPI. ROS Other: All systems not noted in ROS Statement are negative. Past Medical History Past Medical History: Asthma Additional Past Medical History / Comment(s): polycystic ovaries, herpes History of Any Multi-Drug Resistant Organisms: None Reported Past Surgical History: No Surgical Hx Reported Past Psychological History: Anxiety, Depression Smoking Status: Vaper Past Alcohol Use History: None Reported Past Drug Use History: Marijuana General Exam Limitations: no limitations General appearance: alert, in no apparent distress Head exam: Present: atraumatic, normocephalic, normal inspection Eye exam: Present: normal appearance, PERRL, EOMI. Absent: scleral icterus, conjunctival injection, periorbital swelling ENT exam: Present: normal exam, mucous membranes moist Neck exam: Present: normal inspection. Absent: tenderness, meningismus, lymphadenopathy Respiratory exam: Present: normal lung sounds bilaterally. Absent: respiratory distress, wheezes, rales, rhonchi, stridor, accessory muscle use Cardiovascular Exam: Present: regular rate, normal rhythm, normal heart sounds. Absent: systolic murmur, diastolic murmur, rubs, gallop, clicks GI/Abdominal exam: Present: soft, normal bowel sounds. Absent: distended, tenderness, guarding, rebound, rigid Extremities exam: Present: tenderness (Positive left lateral malleolus TTP and moderate edema without ecchymosis, crepitus, deformity), normal capillary refill, other (Decreased left dorsi/plantarflexion strength. Distal neurovascular intact. Dorsalis pedis pulse +2. Negative left knee, superior tib-fib TTP). Absent: pedal edema, joint swelling, calf tenderness Back exam: Present: normal inspection Neurological exam: Present: alert, oriented X3, CN II-XII intact Psychiatric exam: Present: normal affect, normal mood Skin exam: Present: warm, dry, intact, normal color. Absent: rash Course Vital Signs 09/20/24 09/20/24 09:52 12:00 Temperature 98.5 F Pulse Rate 101 H 102 H Respiratory 16 18 Rate Blood Pressure 105/71 102/70 O2 Sat by Pulse 99 96 Oximetry Procedures - Orthopedic Splinting/Casting Injury #1 Side: left Lower Extremity Injury Location: ankle Lower Extremity Immobilizer: posterior splint Other Orthopedic Equipment: crutches Medical Decision Making - Medical Decision Making Was pt. sent in by a medical professional or institution (, PA, RUBBISH COLLECTOR, urgent care, hospital, or alf...) When possible be specific @ -No Did you speak to anyone other than the patient for history (EMS, parent, family, police, friend...)? What history was obtained from this source @ -No Did you review nursing and triage notes (agree or disagree)? Why? @ -I reviewed and agree with nursing and triage notes Were old charts reviewed (outside hosp., previous admission, EMS record, old EKG, old radiological studies, urgent care reports/EKG's, alf records)? Report findings @ -No old charts were reviewed Differential Diagnosis (chest pain, altered mental status, abdominal pain women, abdominal pain men, vaginal bleeding, weakness, fever, dyspnea, syncope, headache, dizziness, GI bleed, back pain, seizure, CVA, palpatations, mental health, musculoskeletal)? @ -Differential Musculoskeletal Muscular strain, contusion, ligament sprain, fracture, arthritis, septic arthritis, bursitis, cellulitis, muscle spasm, nerve compression, DVT, arterial occlusion, herpes zoster, electrolyte abnormality, tumor.... This is not meant to be in all inclusive list EKG interpreted by me (3pts min.). @ -Not done X-rays interpreted by me (1pt min.). @ -Left ankle x-ray shows oblique fracture through distal fibula with intra- articular extension with soft tissue swelling noted. CT interpreted by me (1pt min.). @ -None done U/S interpreted by me (1pt. min.). @ -None done What testing was considered but not performed or refused? (CT, X-rays, U/S, labs)? Why? @ -None What meds were considered but not given or refused? Why? @ -None Did you discuss the management of the patient with other professionals (professionals i.e. , PA, RUBBISH COLLECTOR, lab, RT, psych nurse, social worker delinquency prevention, dinkey operator slag, teacher, environmental protection officer, adult protective caseworker)? Give summary @ -No Was smoking cessation discussed for >3mins.? @ -No Was critical care preformed (if so, how long)? @ -No Were there social determinants of health that impacted care today? How? (Homelessness, low income, unemployed, alcoholism, drug addiction, transportation, low edu. Level, literacy, decrease access to med. care, intermediate, rehab)? @ -No Was there de-escalation of care discussed even if they declined (Discuss DNR or withdrawal of care, Hospice)? DNR status @ -No What co-morbidities impacted this encounter? (DM, HTN, Smoking, COPD, CAD, Cancer, CVA, ARF, Chemo, Hep., AIDS, mental health diagnosis, sleep apnea, morbid obesity)? @ -None Was patient admitted / discharged? Hospital course, mention meds given and route, prescriptions, significant lab abnormalities, going to OR and other pertinent info. @ - heart tones WNL. Left ankle x-ray shows oblique fracture through distal fibula with intra-articular extension with soft tissue swelling noted. Patient provided p.o. Tylenol for pain. Posterior splint applied and patient provided crutches. Advised Tylenol every 4-6 hours as needed for pain along wit h RICE. Follow-up with orthopedics for ongoing management of intra-articular fibular fracture. Discussed patient with Dr. Fraser. Undiagnosed new problem with uncertain prognosis? @ -No Drug Therapy requiring intensive monitoring for toxicity (Heparin, Nitro, Insulin, Cardizem)? @ -No Were any procedures done? @ -No Diagnosis/symptom? @ -Closed intra-articular distal fibular fracture Acute, or Chronic, or Acute on Chronic? @ -Acute Uncomplicated (without systemic symptoms) or Complicated (systemic symptoms)? @ -Uncomplicated Side effects of treatment? @ -No Exacerbation, Progression, or Severe Exacerbation? @ -No Poses a threat to life or bodily function? How? (Chest pain, [place], [place], pneumonia, PE, COPD, DKA, ARF, appy, cholecystitis, CVA, Diverticulitis, Homicidal, Suicidal, threat to staff... and all critical care pts) @ -No Disposition Clinical Impression: Fracture of distal end of left fibula Disposition: HOME SELF-CARE Condition: Fair Instructions (If sedation given, give patient instructions): Ankle Fracture (ED) Additional Instructions: Rest, ice, compression, elevation. Tylenol every 4-6 hours as needed for pain. Follow-up with orthopedics for ongoing management of ankle fracture. Is patient prescribed a controlled substance at d/c from ED?: No Referrals: Shon Carcamo MD [Primary Care Provider] - 1-2 days [facility] [Provider Group] - 1-2 days [facility] [Provider Group] - 1-2 days Time of Disposition: 12:15
[2024-09-20] MEDS: ACETAMINOPHEN TAB 500 MG TAB PO STA (10:56)
--- NOTE | 2024-09-20 11:21 | XR ---
EXAMINATION TYPE: XR ankle complete LT DATE OF EXAM: 09/20/2024 10:55 AM COMPARISON: None CLINICAL INDICATION: Female, 29 years old with history of Trip and fall, lateral malleolus edema/TTP; PHH, pain TECHNIQUE: XR ankle complete LT; frontal, lateral and oblique projections. FINDINGS: Oblique fracture through the distal fibula that extends into the distal tibiofibular joint and ankle mortise. There is soft tissue swelling around the ankle. No additional fractures. Accessory ossicle n ear the base of the fifth metatarsal. IMPRESSION: Oblique fracture through the distal fibula with intra-articular extension [facility] Pati Hankins, , 09/20/2024 11:19 AM
[2024-09-20 12:03] VITALS: BP 102/70; PULSE 102; RESP 18
== END 2024-09-20 12:03 | disposition home or self-care (01) ==
LOC: EC 09:52
DX: O9A.213 Injury, poisoning and certain other consequences of external causes complicating pregnancy, third trimester (principal); O99.333 Smoking (tobacco) complicating pregnancy, third trimester; S82.832A Other fracture of upper and lower end of left fibula, initial encounter for closed fracture; F17.290 Nicotine dependence, other tobacco product, uncomplicated; W01.0XXA Fall on same level from slipping, tripping and stumbling without subsequent striking against object, initial encounter; Z3A.35 35 weeks gestation of pregnancy
CPT/HCPCS: 29515; 99283

== ENCOUNTER 2024-10-25 09:40 | Outpatient (CLI) | payer OTHER ==
[2024-10-25 14:48] VITALS: BP 126/83; PULSE 73; RESP 16; TEMP 97.6
--- NOTE | 2024-10-31 09:32 | P.MSEPDOC ---
Presenting Problems - Arrival Data Date of Arrival on Unit: 10/25/24 Time of Arrival on Unit: 09:41 Mode of Transport: Ambulatory - Complaint OB-Reason for Admission/Chief Complaint: Possible Onset of Labor Comment: pt arrived to triage c/o contractions q 7-10 minutes apart and lasting 40 seconds pt denies any rom Medical History - Information : 1 Para: 0 Term: 0 : 0 Abortions: Spontaneous or Elective: 0 Number of Living Children: 0 - Gestational Age Gestational Age by BARB (wks/days): 39 Weeks and 5 Days Review of Systems - Review of Systems Constitutional: No problems Breast: No problems ENT: No problems Cardiovascular: No problems Respiratory: No problems Gastrointestinal: No problems Genitourinary: No problems Musculoskeletal: No problems Neurological: No problems Skin: No problems Vital Signs - Temperature Temperature: 97.6 F Temperature Source: Oral - Pulse Right Brachial Pulse Rate: 73 Pulse Assessment Method: Automatic Cuff - Respirations Respiratory Rate: 16 Oxygen Delivery Method: Room Air O2 Sat by Pulse Oximetry: 100 - Blood Pressure Right Arm Blood Pressure: 126/83 Blood Pressure Mean: 97 Blood Pressure Source: Automatic Cuff Medical Screen Scoring - Cervical Exam Dilation (cm): 4 Effacement (%): 80 Station: -2 Membranes: Intact - Uterine Contractions Frequency From (mins): 5 Frequency To (mins): 6 Duration From (seconds): 50 Intensity: Mild Resting: Soft to palpation - Assessment - Baby A Baseline FHR: 140 Heart Rate - NICHD Category: Category I (Normal) NST: Reactive Physician Notification - Physician Notified Physician Notified Date: 10/25/24 Physician Notified Time: 10:25 Physician: dr hutchison New Order Received: Yes - Notification Comment Comment: pt watched for 1 hour with cervix slightly changed from 3-4 to 4cm. pt ambulated in hallway for over 1 hour and placed back on monitor with contractions q 6 minutes apart and cervix rechecked with no change 4 cm.membranes intact Maternal Triage Index - Non-Urgent/Priority 4 Non-Urgent Priority 4: Yes Criteria Met for Priority 4: pt cervix 3-4 cm 80% effaced -2 station. rechecked after 1 hor with cervix 4cm 80% effaced -2. and posterior. pt up ambulating in hallway for over 1 hour and cervix rechecked and remains 4 cm 80% effaced and -2 station Disposition - Disposition OB Disposition: Discharge to home Discharge Date: 10/25/24 Discharge Time: 13:54 I agree with the RN Medical Screening Exam: Yes Physician's MSE Comment: I have neither seen nor examined the patient. Case reviewed; plan agreed upon as documented in EMR&OBIX.: Yes Diagnosis: RELATED CONDITIONS, UNSPECIFIED, THIRD TRIMESTER
== END 2024-10-25 13:54 | disposition home or self-care (01) ==
LOC: FBPOP 09:40
PROVIDERS: ATTEND Obstetrics & Gynecology
DX: O26.893 Other specified pregnancy related conditions, third trimester (principal); F12.90 Cannabis use, unspecified, uncomplicated; Z3A.39 39 weeks gestation of pregnancy
CPT/HCPCS: 59025; 84112; G0463; 99213

== ENCOUNTER 2024-10-25 21:24 | Inpatient (IN) | payer OTHER ==
[2024-10-25] MEDS ORDERED: TERBUTALINE 1 MG/ML VIAL SQ PRN (22:36)
[2024-10-25] MEDS ORDERED: TRANEXAMIC 1,000 MG/100ML-NACL 1,000 MG in EMPTY BAG 1 BAG IV PRN (22:36)
[2024-10-25] MEDS ORDERED: CARBOPROST TROMETHAMINE 250 MCG/ML 1 ML AMP IM PRN (22:36)
[2024-10-25] MEDS ORDERED: OXYTOCIN 10 UNIT/ML 1 ML VIAL IM PRN (22:36)
[2024-10-25] MEDS ORDERED: LIDOCAINE 0.5% (PF) 5 MG/ML (50 ML SDV) SQ PRN (22:36)
[2024-10-25] MEDS ORDERED: METHYLERGONOVINE 0.2 MG/ML 1 ML AMP IM PRN (22:36)
[2024-10-25 22:46] LABS: Basophils # (A) 0.05 10*3/uL (0.00-0.10); Basophils % (A) 0.4 %; Eosinophils # (A) 0.06 10*3/uL (0.04-0.35); Eosinophils % (A) 0.5 %; HCT 36.2 % (37.2-46.3); HGB 12.0 g/dL (12.0-15.0); Lymphocytes # (A) 2.95 10*3/uL (0.90-5.00); Lymphocytes % (A) 23.1 %; MCH 24.3 pg (27.0-32.0); MCHC 33.1 g/dL (32.0-37.0); MCV 73.3 fL (80.0-97.0); Monocytes # (A) 0.89 10*3/uL (0.20-1.00); Monocytes % (A) 7.0 %; Neutrophils # (A) 8.73 10*3/uL (1.80-7.70); Neutrophils % (A) 68.2 %; Platelet Count 236 10*3/uL (140-440); RBC 4.94 10*6/uL (4.10-5.20); RDW 14.9 % (11.5-14.5); WBC 12.78 10*3/uL (4.50-10.00)
[2024-10-25] MEDS: LACTATED RINGERS 1,000 ML IV SCH (23:10)
[2024-10-25 23:15] VITALS: RESP 16
[2024-10-26] MEDS ORDERED: ROPIVACAINE 5 MG/ML 30 ML VIAL ONE (00:22)
[2024-10-26] MEDS ORDERED: SODIUM CHLORIDE 0.9% 250 ML BAG ONE (00:22)
[2024-10-26] MEDS ORDERED: fentaNYL (PF) 50 MCG/ML 5 ML AMP ONE (00:22)
[2024-10-26] MEDS: OXYTOCIN 30 UNITS/500 ML NS 30 UNIT in SALINE 1 500ML.BAG IV SCH (08:16)
--- NOTE | 2024-10-26 08:57 | P.HPOB ---
History of Present Illness H&P Date: 10/26/24 Chief Complaint: 39-6/7 weeks, labor The patient is a 29-year-old 2 para 0-0-1-0 admitted at 39-6/7 weeks as established by last menstrual period and confirmed by 13-week ultrasound. She is admitted in labor with all signs reassuring, category 1 heart rate tra cing. Her has been essentially uncomplicated. 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 Group B strep status is negative. On labor and delivery, she was found to additionally have spontaneous rupture of membranes. Obstetrical history: 2 para 0-0-1-0 with current statistics listed in history of present illness. EDC of 10/27/2024 was established by last menstrual period and confirmed by 13-week ultrasound. Laboratory workup demonstrates a blood type of O+ with a negative antibody screen. Rubella status is immune. The remainder of the laboratory workup was within normal limits. 1 hour Glucola was normal and group B strep status is negative. Gynecologic history: Unremarkable with no history of any infections to include STDs aside from the HSV as mentioned above for which she is receiving prophylaxis. Review of Systems Review of systems is confined to history of present illness. Past Medical History Past Medical History: Asthma Additional Past Medical History / Comment(s): polycystic ovaries, herpes History of Any Multi-Drug Resistant Organisms: None Reported Past Surgical History: No Surgical Hx Reported Past Anesthesia/Blood Transfusion Reactions: No Reported Reaction Past Psychological History: Anxiety, Depression Smoking Status: Never smoker, Vaper Past Alcohol Use History: None Reported Past Drug Use History: Marijuana Additional Drug Use History / Comment(s): used to vape THC and nictoine and quit at beginging of Medications and Allergies Home Medications Medication Instructions Recorded Confirmed Type Aspirin [[place] Aspirin EC] 81 mg PO DAILY 10/25/24 10/25/24 History Ferrous Sulfate [Iron] 325 mg PO DAILY 10/25/24 10/25/24 History Vit No.179/Iron/Folic 1 each PO DAILY 10/25/24 10/25/24 History [ Tablet] valACYclovir HCL [Valacyclovir] 1,000 mg PO DAILY 10/25/24 10/25/24 History Allergies Allergy/AdvReac Type Severity Reaction Status Date / Time No Known Allergies Allergy Verified 10/25/24 10:24 Exam Vital Signs Temp Pulse Resp BP Pulse Ox 10/25/24 23:11 97.4 F L 80 16 123/85 99 Intake and Output 10/25/24 10/26/24 10/26/24 22:59 06:59 14:59 Other: # Voids 3 Weight 77.111 kg 77.111 kg In general, this is a well-developed, well-nourished white female in no acute distress. Her heart has a regular rhythm and rate without murmur. Her lungs clear to auscultation bilaterally in all [place]. Her abdomen is gravid, nondistended, has normal active bowel sounds, soft, nontender, and without any p alpable masses aside from the uterine fundus. Her extremities are without any cyanosis, clubbing, or edema and are nontender to palpation bilaterally. Digital cervical examination demonstrates her cervix to be dilated to an anterior lip with the vertex and presentation at -1-2 station. Spontaneous rupture of membranes for clear fluid has been documented. Results Result Diagrams: 10/25/24 22:30 Abnormal Lab Results - Last 24 Hours (Table) 10/25/24 Range/Units 22:30 WBC 12.78 H (4.50-10.00) 10*3/uL Hct 36.2 L (37.2-46.3) % MCV 73.3 L (80.0-97.0) fL MCH 24.3 L (27.0-32.0) pg Immature Gran # 0.10 H (0.00-0.04) 10*3/uL Neutrophils # 8.73 H (1.80-7.70) 10*3/uL Assessment and Plan (1) Active labor at term Current Visit: Yes Status: Acute Code(s): [id number] - SNOMED Code(s): 41462284 Plan: The patient has been admitted for active management of labor. An epidural catheter is in place for analgesia. As she has made little progress over the last hour or so, Pitocin augmentation has been added. We would anticipate n ormal spontaneous vaginal delivery in the near future. She will continue to have close maternal and surveillance in the meantime.
[2024-10-26] MEDS ORDERED: HYDROCORTISONE 2.5% RECTAL CREAM 30 GM TUBE RECTAL PRN (12:46)
[2024-10-26] MEDS ORDERED: diphenhydrAMINE 25 MG CAP PO PRN (12:46)
[2024-10-26] MEDS ORDERED: SIMETHICONE 80 MG CHEWABLE PO PRN (12:46)
[2024-10-26] MEDS ORDERED: diphenhydrAMINE 50 MG/ML 1 ML VIAL IVP PRN ×2 (12:46)
[2024-10-26] MEDS ORDERED: LANOLIN CREAM 1 GM TUBE TOPICAL PRN (12:46)
[2024-10-26] MEDS ORDERED: ZOLPIDEM 5 MG TAB PO PRN (12:46)
[2024-10-26] MEDS ORDERED: BENZOCAINE/MENTHOL SPRAY 1 GM/SPRAY AEROSOL TOPICAL PRN (12:46)
--- NOTE | 2024-10-26 12:50 | P.PROBDLV ---
Vaginal Delivery Note - . Vaginal Delivery Note: The patient is a 29-year-old 2 para 0-0-1-0 admitted at 39-6/7 weeks by good dating parameters. She is admitted in early active labor with spontaneous rupture of membranes for clear fluid. Her has been essentially uncomplicated and group B strep status is negative. On labor and delivery, she progressed into the active phase of labor and had an epidural catheter placed for analgesia. She continued to progress until approximately dilation of ante rior lip at which time she arrested dilation for several hours. Pitocin augmentation was added and ultimately she progressed to complete and then pushed over the course of just over an hour to a normal spontaneous vaginal delivery of a viable 8 pound 13 ounce baby boy with Apgars of 9 at 1 minute and 9 at 5 minutes delivered in the right occiput anterior position. There was a nuchal cord x 1 which was reduced following delivery of the . The placenta was delivered spontaneously, intact, and grossly normal with a grossly normal three- vessel cord inserted approximately 1 to 2 cm from the margin of the placental disc. Inspection of the perineum and vagina demonstrated a reasonably sized right labial laceration on the inside of the labia minora which was gaping from the hymeneal ring to near the top of the labia. It was repaired in running fashion using 3-0 chromic catgut without difficulty. Estimated blood loss for the case was approximately 200 mL. There were no complications. All sponge, instrument, and needle counts were correct. Both mother and infant are resting comfortably in recovery.
[2024-10-26] MEDS ORDERED: OXYTOCIN 30 UNITS/500 ML NS 30 UNIT in SALINE 1 500ML.BAG IV SCH (13:00)
[2024-10-26] MEDS: IBUPROFEN 800 MG TAB PO SCH (13:50)
[2024-10-26] MEDS: ACETAMINOPHEN TAB 500 MG TAB PO SCH (18:18)
[2024-10-26] MEDS: SENNOSIDES-DOCUSATE SODIUM 1 EACH TAB PO SCH (21:49)
[2024-10-27 05:04] VITALS: BP 101/66; PULSE 69; TEMP 97.4
[2024-10-27 06:25] LABS: Basophils # (A) 0.07 10*3/uL (0.00-0.10); Basophils % (A) 0.4 %; Eosinophils # (A) 0.11 10*3/uL (0.04-0.35); Eosinophils % (A) 0.7 %; HCT 27.9 % (37.2-46.3); Lymphocytes # (A) 3.27 10*3/uL (0.90-5.00); Lymphocytes % (A) 20.2 %; MCH 24.9 pg (27.0-32.0); MCHC 33.3 g/dL (32.0-37.0); MCV 74.8 fL (80.0-97.0); Monocytes # (A) 1.05 10*3/uL (0.20-1.00); Monocytes % (A) 6.5 %; Neutrophils # (A) 11.61 10*3/uL (1.80-7.70); Neutrophils % (A) 71.5 %; Platelet Count 188 10*3/uL (140-440); RBC 3.73 10*6/uL (4.10-5.20); RDW 14.7 % (11.5-14.5); WBC 16.22 10*3/uL (4.50-10.00)
[2024-10-27 06:34] LABS: HGB 9.3 g/dL (12.0-15.0)
--- NOTE | 2024-10-27 07:46 | P.DS ---
Providers Date of admission: 10/25/24 21:56 Expected date of discharge: 10/27/24 Attending physician: Maciej Gonzalez Primary care physician: Stated None - Discharge Diagnosis(es) (1) Active labor at term Current Visit: Yes Status: Acute (2) Normal spontaneous vaginal delivery Current Visit: Yes Status: Acute Hospital Course: The patient is a 29-year-old 2 para 0-0-1-0 admitted at 39-6/7 weeks by good dating parameters. She is admitted with documented spontaneous rupture of membranes in early labor with all signs reassuring, category 1 heart rate tracing. Her was uncomplicated though she does have a history of HSV for which she was on prophylaxis starting at 36 weeks. Group B strep status is negative. She progressed into the active phase of labor and had an epidural catheter placed for analgesia. She then continued to progress to anterior lip at which time her contraction pattern spaced out and she had Pitocin augmentation started. She then ultimately progressed to complete and pushed to a normal spontaneous vaginal delivery of a viable 8 pound 13 ounce baby boy with Apgars of 9 at 1 minute and 9 at 5 minutes. Her course was unremarkable with vital signs remaining stable and her temperature was afebrile throughout. She was deemed stable for discharge on day #1 and was discharged home to follow-up in the office in 6 weeks time routinely. Discharge instructions included calling for any significantly increased bleeding or foul- smelling lochia, significantly increased fever abdominal pain, perineal complaints, breast complaints, or anything else that concerned her. She was additionally instructed to have nothing in the vagina for at least 6 weeks time to include intercourse. She understood her instructions and agrees to follow-up as noted above. Discharge medications included continued vitamins as she has opted to breast-feed. She was otherwise to use [id number] analgesic pain medications as needed. Maternal blood type is O+ and rubella status is immune. Procedures: #1. Epidural analgesia #2. Pitocin augmentation #3. Normal spontaneous vaginal delivery #4. Repair of right labial laceration Patient Condition at Discharge: Stable Plan - Discharge Summary New Discharge Prescriptions: No Action valACYclovir HCL [Valacyclovir] 1,000 mg PO DAILY Vit No.179/Iron/Folic [ Tablet] 1 each PO DAILY Aspirin [[place] Aspirin EC] 81 mg PO DAILY Ferrous Sulfate [Iron] 325 mg PO DAILY Discharge Medication List Aspirin [[place] Aspirin EC] 81 mg PO DAILY 10/25/24 [History] Ferrous Sulfate [Iron] 325 mg PO DAILY 10/25/24 [History] Vit No.179/Iron/Folic [ Tablet] 1 each PO DAILY 10/25/24 [History] valACYclovir HCL [Valacyclovir] 1,000 mg PO DAILY 10/25/24 [History] Follow up Appointment(s)/Referral(s): Maciej Gonzalez MD [STAFF PHYSICIAN] - 12/09/24 2:15 pm Discharge Disposition: HOME SELF-CARE
== END 2024-10-27 14:30 | disposition home or self-care (01) | DRG 560 ==
LOC: FBPOP 21:24 → 4FBP 21:56
PROVIDERS: ADMIT Obstetrics & Gynecology; ATTEND Obstetrics & Gynecology
PROC: 0HQ9XZZ Repair Perineum Skin, External Approach (ICD-10-PCS; principal; 2024-10-26)
PROC: 10E0XZZ Delivery of Products of Conception, External Approach (ICD-10-PCS; principal; 2024-10-26)
PROC: 0UQMXZZ Repair Vulva, External Approach (ICD-10-PCS; principal; 2024-10-26)
DX: O69.81X0 Labor and delivery complicated by cord around neck, without compression, not applicable or unspecified (principal); O71.82 Other specified trauma to perineum and vulva; O99.52 Diseases of the respiratory system complicating childbirth; J45.909 Unspecified asthma, uncomplicated; Z37.0 Single live birth; Z3A.39 39 weeks gestation of pregnancy; Z79.82 Long term (current) use of aspirin; Z79.899 Other long term (current) drug therapy
CPT/HCPCS: 59025; 84112; 85025; 86850; 86900; 86901; 99213

== ENCOUNTER 2024-11-01 13:44 | Outpatient (CLI) | payer OTHER ==
[2024-11-01 14:40] VITALS: BP 129/80; PULSE 64; RESP 16; TEMP 97.7
--- NOTE | 2024-11-14 13:08 | P.MSEPDOC ---
Presenting Problems - Arrival Data Date of Arrival on Unit: 11/01/24 Time of Arrival on Unit: 13:44 Mode of Transport: Ambulatory - Complaint OB-Reason for Admission/Chief Complaint: Other Comment: Post pt presents to triage with c/o of bleeding. Pt reports delivering vaginally on 10/26. Pt reports using the bathroom at 1230. Pt was putting pad on and was going to stand up and "piece of tissue fell out and I tried to pull on it and it hurt". Pt reports tissue is partially hanging out. Medical History - Information : 1 Para: 1 Term: 1 : 0 Abortions: Spontaneous or Elective: 0 Number of Living Children: 1 - Gestational Age Gestational Age by BARB (wks/days): 40 Weeks and 6 Days Review of Systems - Review of Systems Constitutional: No problems Breast: No problems ENT: No problems Cardiovascular: No problems Respiratory: No problems Gastrointestinal: No problems Genitourinary: No problems Musculoskeletal: No problems Neurological: No problems Skin: No problems Vital Signs - Temperature Temperature: 97.7 F Temperature Source: Temporal Artery Scan - Pulse Right Brachial Pulse Rate: 64 Pulse Assessment Method: Automatic Cuff - Respirations Respiratory Rate: 16 Oxygen Delivery Method: Room Air O2 Sat by Pulse Oximetry: 98 - Blood Pressure Right Arm Blood Pressure: 129/80 Blood Pressure Mean: 96 Blood Pressure Source: Automatic Cuff Physician Notification - Physician Notified Physician Notified Date: 11/01/24 Physician Notified Time: 14:15 Physician: Maciej Gonzalez Order Received: Yes - Notification Comment Comment: Dr. Gonzalez called back for report. Report given on pt. Description of tissue given to Small amount of bright red blood visualized but no active bleeding noted. Orders received to d/c pt to home. Office apt made for pt tomorrow 11/02 at 1130. Maternal Triage Index - Non-Urgent/Priority 4 Non-Urgent Priority 4: Yes Criteria Met for Priority 4: Post pt presents to triage with c/o of bleeding. Pt reports delivering vaginally on 10/26. Pt reports using the bathroom at 1230. Pt was putting pad on and was going to stand up and "piece of tissue fell out and I tried to pull on it and it hurt". Pt reports tissue is partially hanging out. Disposition - Disposition OB Disposition: Discharge to home Discharge Date: 11/01/24 Discharge Time: 14:32 I agree with the RN Medical Screening Exam: Yes Physician's MSE Comment: I have neither seen nor examined the patient. Case reviewed; plan agreed upon as documented in EMR&OBIX.: Yes Diagnosis: ENCOUNTER FOR FULL-TERM UNCOMPLICATED DELIVERY
== END 2024-11-01 14:32 | disposition home or self-care (01) ==
LOC: FBPOP 13:44
PROVIDERS: ATTEND Obstetrics & Gynecology
CPT/HCPCS: 99213